=== PATIENT | female | born 2000 | race Caucasian/White ===

== ENCOUNTER 2020-09-03 09:25 | Inpatient (IN) ==
[2020-09-03] MEDS ORDERED: LIDOCAINE HCL 50 ML VIAL PERI PRN (09:31)
[2020-09-03] MEDS ORDERED: ONDANSETRON 4 MG TAB.RAPDIS PO PRN (09:31)
[2020-09-03] MEDS ORDERED: OXYTOCIN/0.9 % SODIUM CHLORIDE 30 UNITS/500 ML BAG IV ONE (09:31)
[2020-09-03] MEDS ORDERED: RINGER'S SOLUTION,LACTATED 1,000 ML IV ONE (09:31)
[2020-09-03] MEDS ORDERED: BUTORPHANOL TARTRATE 2 MG/ML VIAL IV PRN (09:31)
[2020-09-03 09:50] LABS: Hematocrit 33.9 % (37.0-47.0); Hemoglobin 10.9 gm/dL (12.5-16.0); Mean Cell Volume 85.2 fl (78-100); Mean Corpuscular Hemoglobin 27.4 pg (27-31); Mean Corpuscular Hgb Conc 32.2 g/dl (32-36); Mean Platelet Volume 11.9 fl (8-12.5); Neutrophil % 73.6 % (42-75.0); Platelet Count 209 K/mm3 (150-450); Red Blood Count 3.98 M/mm3 (4.2-5.4); Red Cell Distribution Width 13.6 % (11.5-14.0); White Blood Count 10.9 K/mm3 (4.0-10.5)
[2020-09-03] MEDS: RINGER'S SOLUTION,LACTATED 1,000 ML IV PRN ×2 (09:51→17:01)
[2020-09-03] MEDS: MISOPROSTOL 100 MCG TABLET VG PRN ×4 (09:57→23:22)
[2020-09-03 10:13] LABS: Albumin * 2.8 gm/dl (3.4-5.0); Anion Gap 14.1 mmol/L (6.8-13.8); BUN/Creatinine Ratio 15.4 (9.0-21.6); Bilirubin, Total 0.1 mg/dL (0.0-1.1); Ca. Corrected For Albumin 9.6 mg/dL (8.4-10.2); Carbon Dioxide 23.3 mmol/L (24-32.6); Potassium 3.4 mmol/L (3.4-4.6); Total Protein 6.9 gm/dL (6.2-8.2)
[2020-09-03 14:08] LABS: Random Urine Total Protein 11.4 mg/dL (0-12)
[2020-09-03] MEDS: BUTORPHANOL TARTRATE 2 MG/ML VIAL IV PRN ×3 (17:39→22:44)
[2020-09-04] MEDS: RINGER'S SOLUTION,LACTATED 1,000 ML IV PRN ×4 (01:04→18:10)
[2020-09-04] MEDS ORDERED: fentaNYL CITRATE/PF 50 MCG/ML AMPUL IT SCH (01:15)
[2020-09-04] MEDS ORDERED: NALOXONE HCL 1 MG/1 ML SYRG IV PRN (01:15)
[2020-09-04] MEDS ORDERED: ONDANSETRON HCL/PF 2 MG/ML VIAL IV PRN ×2 (01:15→06:35)
[2020-09-04] MEDS ORDERED: BUPIVACAINE HCL/0.9 % NACL/PF 250 ML EP PRN (01:15)
--- NOTE | 2020-09-04 02:44 | ANES ---
Anesthesia Pre Procedure Eval Vitals/Labs: Last Vital Signs Temp 36.8 C 09/04/20 01:53 Pulse 76 09/04/20 01:53 Resp 22 H 09/04/20 01:53 BP 146/82 H 09/04/20 01:53 Pulse Ox 97 09/04/20 01:53 HOME MEDICATIONS breast pump See Rx Instructions .ROUTE .MEDSUPPLY #1 ea 07/02/20 [Last Taken Unknown] Allergies/Adverse Reactions: Allergies Allergy/AdvReac Type Severity Reaction Status Date / Time No Known Allergies Allergy Verified 09/03/20 09:30 - Planned Procedure Planned Procedure: induction elevated blood pressures Medication List Reviewed:: Yes Allergies Verified: Yes Medical History (Last Reviewed 09/04/20 @ 02:43 by Zechariah Hernadez CRNA) Dizziness (Chronic) Generalized headaches (Chronic) Depression (Chronic) Anxiety History of PCOS Ovarian cyst Surgical History (Last Reviewed 09/04/20 @ 02:43 by Zechariah Hernadez CRNA) H/O skin graft Hx of appendectomy Family History (Last Reviewed 09/04/20 @ 02:43 by Zechariah Hernadez CRNA) Mother Diabetes Father Hypertension - Family Anesthesia History Family History:: no untoward family reactions to anesthesia - Airway/Neck/Teeth Within Normal Limits:: Yes Teeth Condition: intact Neck Exam: full range of motion Mallampatti Score: 2 Thyromental (T-M) distance: > 6 cm Mandibulo Hyoid distance: > 3 cm - Respiratory Respiratory Physical: lungs clear Smoking Status: Never smoker Sleep Apnea currently treated: No Sleep Apnea by current assessment: No - Cardiovascular Tolerate Activity: Good Heart Sounds: S1 & S2, Regular - Gastrointestinal NPO since: [place] - Anesthesia Assessment and Plan ASA Class: PS, II, E Anesthesia Type Plan: Epidural Planned difficult intubation/equipment available: No
--- NOTE | 2020-09-04 02:44 | ANES ---
Post Anesthesia Discharge - Transfer of Care Transfer of Care handoff given to nurse: Yes - Anesthesia Post Op Note Anesthesia Post Op Note: care transferred to OB RN
--- NOTE | 2020-09-04 02:45 | ANES ---
Post Anesthesia Assessment - Vital Signs Vitals: Last Vital Signs Temp 36.8 C 09/04/20 01:53 Pulse 76 09/04/20 01:53 Resp 22 H 09/04/20 01:53 BP 146/82 H 09/04/20 01:53 Pulse Ox 97 09/04/20 01:53 Airway Patency: Normal - Mental Status Level Of Consciousness: Awake - Pain Level Pain Score: 2 - N/V Assessment Nausea/Vomiting Presence: None Dehydration:: No
--- NOTE | 2020-09-04 02:47 | ANES ---
Anesthesia Procedure Note Procedure Note: ANESTHESIA PROCEDURE NOTE Date of Procedure: 09/04/2020 Time of procedure: 07 04. Performed by: Romario Hernadez CRNA Chief Hydroelectric Station Operator: None. Preprocedure diagnosis: Active labor. Post procedure diagnosis: Same. Procedure: Insertion of labor epidural. Indications: The patient is a 19-year-old prima para female in active labor requesting labor epidural for pain management. Findings: See below. Details of the procedure: The patient was placed in a sitting position. Back was prepped with DuraPrep. Patient was then draped in a sterile fashion. Lidocaine 1% was infiltrated to the skin and subcutaneous tissues at the level of the L3 4 interspace. The epidural space was identified using a 18-gauge Tuohy needle with [id number] technique. 20 mcg fentanyl was given intrathecally using a 27 ga. spinal needle. Epidural catheter was inserted without difficulty. Negative test dose was elicited using 5 mL of 1.5% preservative-free lidocaine plus epinephrine 1 200,000. The epidural catheter was then taped and secured in place. EBL: Minimal. Fluids: N/A. Specimen: N/A. Post procedure condition: The patient tolerated the procedure well. No complications were noted. Thank you for this consultation. [place] CRNA
[2020-09-04] MEDS ORDERED: TERBUTALINE SULFATE 1 MG/ML VIAL ONE (03:45)
[2020-09-04] MEDS ORDERED: TERBUTALINE SULFATE 1 MG/ML VIAL SC ONE (03:47)
[2020-09-04] MEDS ORDERED: OXYTOCIN/0.9 % SODIUM CHLORIDE 30 UNITS/500 ML BAG IV ONE ×2 (03:49→06:35)
[2020-09-04] MEDS ORDERED: RINGER'S SOLUTION,LACTATED 1,000 ML IV PRN (03:49)
--- NOTE | 2020-09-04 03:59 | HP ---
Chief Complaint - Chief Complaint Date of Service: 09/04/20 Time of Service: 03:51 Chief Complaint: induction of labor History of Present Illness: 19 year old at 39w 5d who presented to labor and delivery for a medical IOL due to GHTN and cholestasis of . She has regular ctx. She has vb and lof. Fetus is active. Medical History (Last Reviewed 09/04/20 @ 03:53 by Tea Mcdaniels MD) Dizziness (Chronic) Generalized headaches (Chronic) Depression (Chronic) Anxiety History of PCOS Ovarian cyst Surgical History: Surgical History (Last Reviewed 09/04/20 @ 03:53 by Tea Mcdaniels MD) H/O skin graft Hx of appendectomy Family History: Family History (Last Reviewed 09/04/20 @ 03:53 by Tea Mcdaniels MD) Mother Diabetes Father Hypertension Social History: (Last Reviewed 09/04/20 @ 03:53 by Tea Mcdaniels MD) Social History: adopted: No Marital status: Single household members: significant other number of children: 0 current occupational status: employed 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 current occupational exposures/hazards: No Highest level of school completed/degree received: Associate degree: occupat Sexually Active: Yes how many partners: 1 Service: No Tobacco: Smoking Status: Never smoker Alcohol: alcohol intake: never Substance Use: substance use type: does not use Dietary Habits: caffeine: No daily servings of milk/calcium: 2-4 Review Of Systems (GEN) - Review of Systems Generalized/Overall Review: Present: No Symptoms Reported Genitourinary: Present: Other - vaginal bleeding Immunizations: IMMUNIZATION HX Immunizations Up to Date Yes History of Influenza Vaccine No Hx Pneumococcal Vaccination No Allergies/Adverse Reactions: Allergies Allergy/AdvReac Type Severity Reaction Status Date / Time No Known Allergies Allergy Verified 09/03/20 09:30 Home Medications: HOME MEDICATIONS breast pump See Rx Instructions .ROUTE .MEDSUPPLY #1 ea 07/02/20 [Last Taken Unknown] Exam - Exam Vital Signs: Vital Signs - Last Taken Temp 36.8 C 09/04/20 01:53 Pulse 76 09/04/20 01:53 Resp 22 H 09/04/20 01:53 BP 146/82 H 09/04/20 01:53 Pulse Ox 97 09/04/20 01:53 Constitutional: Present: Alert, Oriented x3, Cooperative, No distress ENT Exam: Present: hearing grossly normal Eye Exam: bilateral eye: normal inspection Neck: Present: supple, normal inspection Breasts: Present: Exam deferred Respiratory: Present: lungs clear, normal breath sounds, no respiratory distress Cardiovascular/Chest: Present: regular rate, rhythm Abdomen: Present: soft, nontender, nondistended, no rebound tenderness Extremity: Present: non-tender, no calf tenderness Skin Exam: Present: normal color, warm/dry, no cyanosis Neurologic: Present: alert, normal mood/affect, oriented x 3 Appearance: Present: appropriate appearance, appropriate insight, neat, no me an impairment Eye contact: Present: cooperative, good eye contact, normal speech Thoughts: Present: normal thought pattern Diagnostic Studies: Abnormal Lab Results 09/03/20 09/03/20 Range/Units 09:45 09:45 WBC 10.9 H (4.0-10.5) K/mm3 RBC 3.98 L (4.2-5.4) M/mm3 Hgb 10.9 L (12.5-16.0) gm/dL Hct 33.9 L (37.0-47.0) % Immature Gran % (Auto) 0.50 H (0.001-0.429) % Immature Gran # (Auto) 0.05 H (0.000-0.0310) K/mm3 Neutrophils # 8.0 H (1.3-6.0) K/mm3 Carbon Dioxide 23.3 L (24-32.6) mmol/L Anion Gap 14.1 H (6.8-13.8) mmol/L Albumin 2.8 L (3.4-5.0) gm/dl Laboratory Results WBC 10.9 K/mm3 (4.0-10.5) H 09/03/20 09:45 RBC 3.98 M/mm3 (4.2-5.4) L 09/03/20 09:45 Hgb 10.9 gm/dL (12.5-16.0) L 09/03/20 09:45 Hct 33.9 % (37.0-47.0) L 09/03/20 09:45 MCV 85.2 fl (78-100) 09/03/20 09:45 MCH 27.4 pg (27-31) 09/03/20 09:45 MCHC 32.2 g/dl (32-36) 09/03/20 09:45 RDW 13.6 % (11.5-14.0) 09/03/20 09:45 Plt Count 209 K/mm3 (150-450) 09/03/20 09:45 MPV 11.9 fl (8-12.5) 09/03/20 09:45 Immature Gran % (Auto) 0.50 % (0.001-0.429) H 09/03/20 09:45 Immature Gran # (Auto) 0.05 K/mm3 (0.000-0.0310) H 09/03/20 09:45 Neutrophils % 73.6 % (42-75.0) 09/03/20 09:45 Lymphocytes % 20.2 % (20-51) 09/03/20 09:45 Monocytes % 4.7 % (0.0-9) 09/03/20 09:45 Eosinophils % 0.9 % (0.0-3.0) 09/03/20 09:45 Basophils % 0.1 % (0.0-1.0) 09/03/20 09:45 Nucleated RBC % 0.0 k/mm3 (0-1) 09/03/20 09:45 Neutrophils # 8.0 K/mm3 (1.3-6.0) H 09/03/20 09:45 Lymphocytes # 2.19 k/mm3 (1.5-3.5) 09/03/20 09:45 Monocytes # 0.5 k/mm3 (0.0-1.0) 09/03/20 09:45 Eosinophils # 0.1 k/mm3 (0.0-0.7) 09/03/20 09:45 Absolute Basophils 0.0 k/mm3 (0.0-0.1) 09/03/20 09:45 Sodium 139 mmol/L (132-142) 09/03/20 09:45 Plasma Sodium 139 mmol/L (130-142) 09/03/20 09:45 Potassium 3.4 mmol/L (3.4-4.6) 09/03/20 09:45 Chloride 105 mmol/L (97-106) 09/03/20 09:45 Carbon Dioxide 23.3 mmol/L (24-32.6) L 09/03/20 09:45 Anion Gap 14.1 mmol/L (6.8-13.8) H 09/03/20 09:45 BUN 10 mg/dL (3-23) 09/03/20 09:45 Creatinine 0.65 mg/dL (0.4-1.4) 09/03/20 09:45 Est GFR (Non-Af Amer) 122 mL/min (60-130) D 09/03/20 09:45 BUN/Creatinine Ratio 15.4 (9.0-21.6) 09/03/20 09:45 Random Glucose 104 mg/dL (70-110) 09/03/20 09:45 Calcium 9.0 mg/dL (7.9-10.9) 09/03/20 09:45 Calcium Adj for Albumin 9.6 mg/dL (8.4-10.2) 09/03/20 09:45 Total Bilirubin 0.1 mg/dL (0.0-1.1) 09/03/20 09:45 AST 17 U/L (0-48) 09/03/20 09:45 ALT 32 U/L (19-67) 09/03/20 09:45 Alkaline Phosphatase 126 U/L (50-170) 09/03/20 09:45 Total Protein 6.9 gm/dL (6.2-8.2) 09/03/20 09:45 Albumin 2.8 gm/dl (3.4-5.0) L 09/03/20 09:45 Ur Random Creatinine 117.2 mg/dL (60-200) 09/03/20 13:52 U Random Total Protein 11.4 mg/dL (0-12) 09/03/20 13:52 U [place] Prot/Creat Ratio 97 mg/gm (0-199) 09/03/20 13:52 Blood Type O Negative 09/03/20 09:45 Antibody Screen Positive 09/03/20 09:45 Antibody Identification Anti-D 09/03/20 09:45 Assessment/Plan - Narrative Narrative: 19 year old at 39w 5d 1. Medical IOL for GHTN and presumed cholestasis of (bile acids pending): The patient received 4 doses of misoprostol. Pitocin was not started due to nonreassuring heart rate with deep variables down to a dasha of 60 2. NRFHT as above: proceed with primary delivery due to NRFHT and cervical exam is 4 cm 3. GBS negative - Assessment/Plan (1) 39 weeks gestation of Problem: Acute (2) Bloodstained amniotic fluid Problem: Acute Qualifiers: Trimester: third trimester (3) Gestational hypertension Problem: Acute Qualifiers: Trimester: third trimester Qualified Code(s): O13.3 - Gestational [-induced] hypertension without significant proteinuria, third trimester (4) Cholestasis during in third trimester Problem: Acute
[2020-09-04] MEDS ORDERED: BUPIVACAINE HCL/EPINEPHRINE 50 ML VIAL IJ ONE (04:09)
[2020-09-04] MEDS ORDERED: LIDOCAINE HCL/EPINEPHRINE/PF 20 ML VIAL IJ ONE (04:09)
[2020-09-04] MEDS ORDERED: SODIUM BICARBONATE 1 MEQ/ML SYRG ONE (04:09)
[2020-09-04 04:17] LABS: Hemoglobin 10.9 gm/dL (12.5-16.0); Mean Cell Volume 85.6 fl (78-100); Mean Corpuscular Hemoglobin 27.5 pg (27-31); Mean Corpuscular Hgb Conc 32.1 g/dl (32-36); Neutrophil # 11.1 K/mm3 (1.3-6.0); Neutrophil % 73.7 % (42-75.0); Platelet Count 239 K/mm3 (150-450); Red Blood Count 3.97 M/mm3 (4.2-5.4); Red Cell Distribution Width 13.7 % (11.5-14.0); White Blood Count 15.1 K/mm3 (4.0-10.5)
--- NOTE | 2020-09-04 04:19 | ANES ---
Anesthesia Pre Procedure Eval Vitals/Labs: Last Vital Signs Temp 36.8 C 09/04/20 01:53 Pulse 76 09/04/20 01:53 Resp 22 H 09/04/20 01:53 BP 146/82 H 09/04/20 01:53 Pulse Ox 97 09/04/20 01:53 HOME MEDICATIONS breast pump See Rx Instructions .ROUTE .MEDSUPPLY #1 ea 07/02/20 [Last Taken Unknown] Allergies/Adverse Reactions: Allergies Allergy/AdvReac Type Severity Reaction Status Date / Time No Known Allergies Allergy Verified 09/03/20 09:30 - Planned Procedure Planned Procedure: Medication List Reviewed:: Yes Allergies Verified: Yes Medical History (Last Reviewed 09/04/20 @ 04:18 by Zechariah Hernadez CRNA) Dizziness (Chronic) Generalized headaches (Chronic) Depression (Chronic) Anxiety History of PCOS Ovarian cyst Surgical History (Last Reviewed 09/04/20 @ 04:18 by Zechariah Hernadez CRNA) H/O skin graft Hx of appendectomy Family History (Last Reviewed 09/04/20 @ 04:18 by Zechariah Hernadez CRNA) Mother Diabetes Father Hypertension - Family Anesthesia History Family History:: no untoward family reactions to anesthesia - Airway/Neck/Teeth Within Normal Limits:: Yes Teeth Condition: intact Neck Exam: full range of motion Mallampatti Score: 2 Thyromental (T-M) distance: > 6 cm Mandibulo Hyoid distance: > 3 cm - Respiratory Respiratory Physical: lungs clear Smoking Status: Never smoker Sleep Apnea currently treated: No Sleep Apnea by current assessment: No - Cardiovascular Tolerate Activity: Fair Heart Sounds: S1 & S2, Regular - Gastrointestinal NPO since: [place] - Anesthesia Assessment and Plan ASA Class: PS, II, E Anesthesia Type Plan: Epidural - tap block postop Planned difficult intubation/equipment available: No
[2020-09-04] MEDS ORDERED: ceFAZolin SODIUM 1 GM VIAL ONE (04:35)
[2020-09-04 04:59] LABS: INR 0.96 INR (0.92-1.08); Partial Thrombolplastin Time 23.3 Seconds (24-32)
--- NOTE | 2020-09-04 05:40 | OR ---
Operative Report - Dictated Report Narrative: Date of delivery: 09/04/2020 Time of delivery: 448 Gender: male weight: 3697 grams APGARS: 7/9 Preoperative diagnosis: IUP at 39w 5d, GHTN, cholestasis of , vaginal bleeding, NRFHT Postoperative diagnosis: same Procedure: Primary delivery Surgeon: Dr. Mcdaniels Anesthesia: Spinal Anesthesiologist: Romario Hernadez CRNA Description of the procedure: The patient was taken to the operating room where her epidural was redosed. She was prepped and draped in the supine position in the standard surgical fashion. Attention was then turned to the abdomen. A Pfannestiel skin incision was made. The incision was carried through the subcutaneous tissue. The fascia was incised in the midline. The fascial incision was extended laterally bilaterally. The fascia was tented up with Alicja clamps and dissected off the underlying rectus muscles. The rectus muscles were in the midline. The peritoneum was entered sharply. A large Jack retractor was placed in the abdomen. The uterus was incised in a low transverse fashion. Clear amniotic fluid was noted. The head was delivered and a loose nuchal cord was reduced prior to delivery. The rest of the infant was delivered atraumatically and handed off to the attending pediatric staff after the cord was clamped and cut. The placenta was delivered by expression, intact, and without difficulty. The uterus was cleared of all clots and debris. The uterine incision was closed with two layers of 0-vicryl. Hemostasis was adequate. The Jack retractor was removed from the abdomen. The subfascial area and rectus muscles were inspected for hemostasis. The fascia was closed with 1-0 vicryl. The subcutaneous tissue was closed with 2-0 vicryl. The skin was closed with 3-0 monocryl on a Quang needle. [place] ramsay was placed over the incision and the incision was covered with a dressing. All sponge, lap, and needle counts were correct. The patient tolerated the procedure well. She was transferred to the recovery room in stable condition. EBL: 800 mL Complications: none Specimens: cord blood, placenta History for MU Definition: * The number of deliveries resulting in a live the patient experienced prior to current hospitalization * The previous delivery of live twins or any live multiple gestation is considered one live event. *If primagravida or nulliparous is documented select zero for the number of previous live births. Live Events: 0
--- NOTE | 2020-09-04 06:01 | ANES ---
Post Anesthesia Discharge - Transfer of Care Transfer of Care handoff given to nurse: Yes - Discharge from PACU Discharge from PACU when meets criteria: Yes
--- NOTE | 2020-09-04 06:02 | ANES ---
Post Anesthesia Assessment - Vital Signs Vitals: Last Vital Signs Temp 36.9 C 09/04/20 05:55 Pulse 96 09/04/20 05:55 Resp 18 09/04/20 05:55 BP 128/61 09/04/20 05:55 Pulse Ox 100 09/04/20 05:55 Airway Patency: Normal - Mental Status Level Of Consciousness: Awake - Pain Level Pain Score: 0 - N/V Assessment Nausea/Vomiting Presence: None Dehydration:: No
--- NOTE | 2020-09-04 06:04 | ANES ---
Anesthesia Procedure Note Procedure Note: ANESTHESIA PROCEDURE NOTE Date of procedure: 09/04/2020. Time of procedure: 40. Performed by: Romario Hernadez CRNA Director Of Medical Services: Franky Dominguez RN . Preprocedure diagnosis: Status post section. Post procedure diagnosis: Same. Procedure: Ultrasound-guided bilateral tap block Indications: Postoperative analgesia. Findings: Patient was brought to the PACU and placed in supine position. The patient's right abdominal wall was prepped with ChloraPrep. Ultrasound utilized to identify the fascial layer between the internal oblique and transabdominus muscles. A 20-gauge 4 inch regional block needle was advanced under ultrasound guidance till tip of needle was placed just distally to fascial layer. 20 mL of 0.25% Marcaine with epinephrine 1-200,000 was injected with adequate spread of local anesthesia noted. Procedure was then repeated on patient's left side. EBL: Minimal. Fluids: N/A. Specimen: N/A. Post procedure condition: The patient tolerated the procedure well. No complications were noted. Thank you for this consultation Romario Hernadez CRNA
[2020-09-04] MEDS ORDERED: SENNOSIDES 8.6 MG TABLET PO PRN (06:35)
[2020-09-04] MEDS ORDERED: HYDROcodone/ACETAMINOPHEN 1 EACH TABLET PO PRN ×2 (06:35)
[2020-09-04] MEDS ORDERED: diphenhydrAMINE HCL 25 MG CAPSULE PO PRN (06:35)
[2020-09-04] MEDS ORDERED: BISACODYL 10 MG SUPP.RECT RC PRN (06:35)
[2020-09-04] MEDS ORDERED: SIMETHICONE 80 MG TAB.CHEW PO PRN (06:35)
[2020-09-04] MEDS: KETOROLAC TROMETHAMINE 30 MG/ML VIAL IV PRN ×2 (07:00→15:19)
[2020-09-04] MEDS: oxyCODONE HCL/ACETAMINOPHEN 1 TAB TABLET PO PRN ×4 (10:22→21:19)
[2020-09-04] MEDS: DOCUSATE SODIUM 100 MG CAPSULE PO SCH ×2 (10:30→21:16)
[2020-09-04] MEDS ORDERED: RINGER'S SOLUTION,LACTATED 500 ML IV ONE (11:06)
[2020-09-04 11:18] LABS: Hematocrit 29.8 % (37.0-47.0); Hemoglobin 9.7 gm/dL (12.5-16.0); Mean Cell Volume 84.7 fl (78-100); Mean Corpuscular Hemoglobin 27.6 pg (27-31); Mean Corpuscular Hgb Conc 32.6 g/dl (32-36); Mean Platelet Volume 11.7 fl (8-12.5); Neutrophil # 12.6 K/mm3 (1.3-6.0); Neutrophil % 83.8 % (42-75.0); Platelet Count 205 K/mm3 (150-450); Red Blood Count 3.52 M/mm3 (4.2-5.4); Red Cell Distribution Width 13.8 % (11.5-14.0); White Blood Count 15.1 K/mm3 (4.0-10.5)
[2020-09-04] MEDS ORDERED: RHO(D) IMMUNE GLOBULIN 1,500 UNIT SYRINGE IM ONE (12:09)
[2020-09-05] MEDS: oxyCODONE HCL/ACETAMINOPHEN 1 TAB TABLET PO PRN ×4 (03:14→22:47)
[2020-09-05] MEDS: IBUPROFEN 800 MG TABLET PO PRN ×3 (03:15→22:48)
[2020-09-05] MEDS ORDERED: ceFAZolin SODIUM 1 GM VIAL IV PRN (06:00)
--- NOTE | 2020-09-05 09:07 | PN ---
Subjective - Date and Time Seen Date: 09/05/20 Time: 09:06 Subjective Narrative: Patient without complaints Objective Objective Narrative: See vital signs - Review of Systems Generalized/Overall Review: Reports: No Symptoms Reported Misc: All systems neg except as marked - Vitals Vitals: Last Vital Signs Temp 36.8 C 09/05/20 03:00 Pulse 92 09/05/20 03:00 Resp 20 09/05/20 03:00 BP 138/82 09/05/20 03:00 Pulse Ox 96 09/05/20 03:00 - Abnormal Lab Findings Abnormal Lab Findings: Abnormal Lab Results 09/04/20 Range/Units 11:05 WBC 15.1 H (4.0-10.5) K/mm3 RBC 3.52 L (4.2-5.4) M/mm3 Hgb 9.7 L (12.5-16.0) gm/dL Hct 29.8 L (37.0-47.0) % Immature Gran % (Auto) 0.50 H (0.001-0.429) % Immature Gran # (Auto) 0.07 H (0.000-0.0310) K/mm3 Neutrophils % 83.8 H (42-75.0) % Lymphocytes % 11.8 L (20-51) % Neutrophils # 12.6 H (1.3-6.0) K/mm3 - Exam Constitutional: Present: Alert, Oriented x3, Cooperative, No distress ENT Exam: Present: hearing grossly normal Abdomen: Present: soft, nontender, nondistended - dressing c/d/i Extremity: Present: non-tender, no calf tenderness Skin Exam: Present: normal color, warm/dry, no cyanosis Neurologic: Present: alert, normal mood/affect, oriented x 3 Appearance: Present: appropriate appearance, appropriate insight, neat, no memory impairment Eye contact: Present: cooperative, good eye contact, normal speech Thoughts: Present: normal thought pattern Cauti Physician Documentation - Urinary Catheter Management Urethral (Nina) Urethral Indwelling: No Date of Insertion: 09/04/20 Time of Insertion: 03:15 Date of Removal: 09/04/20 Time of Removal: 17:45 Assessment/Plan Plan Narrative: POD 1 s/p primary delivery Doing well Discharge POD 3 - Problems/Diagnosis (1) 39 weeks gestation of Problem: Acute (2) Bloodstained amniotic fluid Problem: Acute Qualifiers: Trimester: third trimester (3) Gestational hypertension Problem: Acute Qualifiers: Trimester: third trimester Qualified Code(s): O13.3 - Gestational [-induced] hypertension without significant proteinuria, third trimester (4) Cholestasis during in third trimester Problem: Acute
[2020-09-05] MEDS: DOCUSATE SODIUM 100 MG CAPSULE PO SCH ×2 (09:26→21:13)
[2020-09-05] MEDS: KETOROLAC TROMETHAMINE 30 MG/ML VIAL IV PRN (12:08)
[2020-09-06] MEDS: oxyCODONE HCL/ACETAMINOPHEN 1 TAB TABLET PO PRN ×3 (06:51→22:28)
[2020-09-06] MEDS: IBUPROFEN 800 MG TABLET PO PRN ×3 (06:52→22:28)
[2020-09-06] MEDS: DOCUSATE SODIUM 100 MG CAPSULE PO SCH ×2 (09:54→21:02)
--- NOTE | 2020-09-06 11:54 | PN ---
Subjective - Date and Time Seen Date: 09/06/20 Time: 11:52 Subjective Narrative: Patient without complaints Objective Objective Narrative: See vital signs - Review of Systems Generalized/Overall Review: Reports: No Symptoms Reported Genitourinary Symptoms: Reports: Other - normal vaginal bleeding Misc: All systems neg except as marked - Vitals Vitals: Last Vital Signs Temp 36.5 C 09/06/20 06:59 Pulse 78 09/06/20 06:59 Resp 14 09/06/20 06:59 BP 122/74 09/06/20 06:59 Pulse Ox 98 09/06/20 06:59 - Exam Constitutional: Present: Alert, Oriented x3, Cooperative, No distress ENT Exam: Present: hearing grossly normal Abdomen: Present: soft, nontender, nondistended - incision c/d/i Extremity: Present: non-tender, no calf tenderness Skin Exam: Present: normal color, warm/dry, no cyanosis Neurologic: Present: alert, normal mood/affect, oriented x 3 Appearance: Present: appropriate appearance, appropriate insight, neat, no memory impairment Eye contact: Present: cooperative, good eye contact, normal speech Thoughts: Present: normal thought pattern Cauti Physician Documentation - Urinary Catheter Management Urethral (Nina) Urethral Indwelling: No Date of Insertion: 09/04/20 Time of Insertion: 03:15 Date of Removal: 09/04/20 Time of Removal: 17:45 Assessment/Plan Plan Narrative: POD 2 s/p primary delivery Doing well Discharge tomorrow - Problems/Diagnosis (1) 39 weeks gestation of Problem: Acute (2) Bloodstained amniotic fluid Problem: Acute Qualifiers: Fetus number: single or unspecified fetus Trimester: third trimester Qualified Code(s): O41.8X30 - Other specified disorders of amniotic fluid and membranes, third trimester, not applicable or unspecified (3) Gestational hypertension Problem: Acute Qualifiers: Trimester: third trimester Qualified Code(s): O13.3 - Gestational [-induced] hypertension without significant proteinuria, third trimester (4) Cholestasis during in third trimester Problem: Acute
[2020-09-07] MEDS: oxyCODONE HCL/ACETAMINOPHEN 1 TAB TABLET PO PRN ×2 (06:02→09:11)
[2020-09-07] MEDS: IBUPROFEN 800 MG TABLET PO PRN ×2 (06:03→11:31)
[2020-09-07 07:15] VITALS: BP 136/80
--- NOTE | 2020-09-07 08:05 | PN ---
Subjective - Date and Time Seen Date: 09/07/20 Time: 08:02 Subjective Narrative: Patient without complaints Objective Objective Narrative: See vital signs - Review of Systems Generalized/Overall Review: Reports: No Symptoms Reported Misc: All systems neg except as marked - Vitals Vitals: Last Vital Signs Temp 36.5 C 09/07/20 06:54 Pulse 73 09/07/20 06:54 Resp 18 09/07/20 06:54 BP 136/80 09/07/20 06:54 Pulse Ox 99 09/07/20 06:54 - Exam Constitutional: Present: Alert, Oriented x3, Cooperative, No distress ENT Exam: Present: hearing grossly normal Neck: Present: normal inspection Abdomen: Present: soft, nontender, nondistended - incision c/d/i Extremity: Present: non-tender, no calf tenderness Skin Exam: Present: normal color, warm/dry, no cyanosis Neurologic: Present: alert, normal mood/affect, oriented x 3 Appearance: Present: appropriate appearance, appropriate insight, neat, no memory impairment Eye contact: Present: cooperative, good eye contact, normal speech Thoughts: Present: normal thought pattern Cauti Physician Documentation - Urinary Catheter Management Urethral (Nina) Urethral Indwelling: No Date of Insertion: 09/04/20 Time of Insertion: 03:15 Date of Removal: 09/04/20 Time of Removal: 17:45 Assessment/Plan Plan Narrative: POD 3 s/p primary delivery Doing well Discharge today - Problems/Diagnosis (1) 39 weeks gestation of Problem: Acute (2) Bloodstained amniotic fluid Problem: Acute Qualifiers: Fetus number: single or unspecified fetus Trimester: third trimester Qualified Code(s): O41.8X30 - Other specified disorders of amniotic fluid and membranes, third trimester, not applicable or unspecified (3) Gestational hypertension Problem: Acute Qualifiers: Trimester: third trimester Qualified Code(s): O13.3 - Gestational [-induced] hypertension without significant proteinuria, third trimester (4) Cholestasis during in third trimester Problem: Acute
--- NOTE | 2020-09-07 08:10 | DS ---
OB Discharge Summary (1) 39 weeks gestation of Status: Acute (2) Bloodstained amniotic fluid Status: Acute Qualifiers: Fetus number: single or unspecified fetus Trimester: third trimester Qualified Code(s): O41.8X30 - Other specified disorders of amniotic fluid and membranes, third trimester, not applicable or unspecified (3) Gestational hypertension Status: Acute Qualifiers: Trimester: third trimester Qualified Code(s): O13.3 - Gestational [-induced] hypertension without significant proteinuria, third trimester (4) Cholestasis during in third trimester Status: Acute Delivery Date: 09/04/20 Delivery Time: 04:49 :: 1 Para:: 1 Gestational weeks:: 39 Gestational days:: 5 Intrapartum Procedures: Primary Section, Delivery-Low Transverse, Anesthesia - Epidural Procedures: None /OP Complications: GHTN Discharge Diagnosis: Term -Delivered, Gestational Hypertension, Other - cholestasis of - Discharge Information Date of Discharge: 09/07/20 Hospital Course: The patient was admitted for a medical IOL due to both GHTN and cholestasis of . She underwent a primary delivery due to NRFHT. delivery was uncomplicated. course was uncomplicated. Discharge Location: Home Disposition: Home self-care Condition: Good Referrals: Neftaly Pedroza MD [Primary Care Provider] - Activity on Discharge:: Activity as tolerated, Pelvic Rest Discharge Diet: General/regular food Additional Patient Instructions (free text): Benigno Schaeffer follow up appt is on 10/07/20 @ 9:30AM in the [facility] with Dr Mcdaniels. Nelda's follow up appt is on Feed him on demand or at least every 2-[address] Nelda on his back in his own crib or bassinet for sleep. No pillows, blankets, stuffed animals, or bumper pads in his sleep space. Please call with any questions/concerns. [facility] [phone], [facility] [phone], [facility] [phone]. Prescriptions (Any new or edited meds): oxyCODONE HCL/ACETAMINOPHEN [Percocet 5 MG/325 MG] 2 tab PO Q4H PRN #20 tab MDD 8 PRN Reason: Moderate Pain (Pain Scale 4-6) Transmission Status: Received by [facility] #[id number] Complete Home Medications List: Complete Home Medication List: breast pump See Rx Instructions .ROUTE .MEDSUPPLY #1 ea 07/02/20 oxyCODONE HCL/ACETAMINOPHEN [Percocet 5 MG/325 MG] 2 tab PO Q4H PRN #20 tab MDD 8 09/05/20 - Plan Discharge to:: Home Comment:: Routine Discharge Instructions Follow up in office in:: Other - 4 weeks - Information Weight (Grams): 3,697 Sex: Male Score 1 min: 7 Score 5 min: 9 Infant Complications: Multiple Late Decels, Multiple Variable Decels, Other - nuchal cord
[2020-09-07] MEDS: DOCUSATE SODIUM 100 MG CAPSULE PO SCH (09:11)
== END 2020-09-07 12:00 | disposition home or self-care (01) | DRG 786 ==
LOC: OB 09:25
PROVIDERS: ADMIT Obstetrics & Gynecology; ATTEND Obstetrics & Gynecology